=== PATIENT | male | born 2000 | race African-American/Black ===

== ENCOUNTER 2023-07-03 06:27 | Emergency (ER) | payer OTHER ==
[~2023-07-03] VITALS: Ht 170.2 cm; Wt 70.5 kg
[2023-07-03 06:34] VITALS: TEMP 98
[2023-07-03 06:43] VITALS: PULSE 95; RESP 16; O2SAT 99
[2023-07-03 06:45] VITALS: PULSE 95; RESP 16; O2SAT 99
[2023-07-03] MEDS ORDERED: ALBUTEROL SULFATE 2.5 MG/0.5 ML NEB SOLUTION NEB ONE (06:45)
[2023-07-03] MEDS ORDERED: PredniSONE 20 MG TABLET PO ONE (06:45)
[2023-07-03] MEDS ORDERED: IPRATROPIUM BROMIDE 0.5 MG/2.5 ML NEB SOLUTION NEB ONE (06:45)
[2023-07-03 07:02] LABS: COVID AG,FIA SOURCE NASAL SWAB
[2023-07-03 07:29] LABS: SARS-COV2 (COVID) ANTIGEN,FIA Negative (Negative)
[2023-07-03 07:30] LABS: INFLUENZA TYPE A NEGATIVE FOR TYPE A (NEGATIVE); INFLUENZA TYPE B NEGATIVE FOR TYPE B (NEGATIVE)
[2023-07-03] MEDS ORDERED: PRED-554 PO (07:36)
[2023-07-03 07:40] VITALS: BP 125/71
[2023-07-03] MEDS ORDERED: ALBUTEROL SULFATE HFA 90 MCG/PUFF 8 GM INHALER IH ONE (07:45)
[2023-07-03 08:19] VITALS: PULSE 95; RESP 16; O2SAT 98
== END 2023-07-03 08:05 | disposition home or self-care (01) ==
LOC: EMS 06:28
DX: J45.909 Unspecified asthma, uncomplicated (principal); Z20.822 Contact with and (suspected) exposure to COVID-19
CPT/HCPCS: 99283; 87426; 87804; 94640; J7512; J3535

== ENCOUNTER 2024-01-26 19:38 | Emergency (ER) | payer OTHER ==
[~2024-01-26] VITALS: Ht 175.3 cm; Wt 70.5 kg
[~2024-01-26 19:38] MED LIST: PRED-554 PO
[2024-01-26 20:03] VITALS: TEMP 98.5
[2024-01-26] MEDS ORDERED: POVIDONE-IODINE 10% 15 ML SOLUTION UD ONE (20:03)
[2024-01-26] MEDS: AMOX TR/POT CLAV 875 MG/125 MG TABLET PO ONE (22:35)
[2024-01-26] MEDS: BACITRACIN 0.9 GM PACKET OINTMENT TP ONE (22:47)
[2024-01-26] MEDS: LIDOCAINE 1% 10 ML VIAL ID ONE (23:05)
[2024-01-26] MEDS: RABIES IMMUNE GLOBULIN/PF 150 UNIT/ML 10 ML VIAL IM. ONE (23:06)
[2024-01-26] MEDS: RABIES VACCINE, HUMAN DIPLOID/PF 2.5 UNITS/ML VIAL IM. ONE (23:06)
[2024-01-26 23:10] VITALS: BP 117/80; PULSE 88; RESP 15
[2024-01-26] MEDS ORDERED: AMOX-457 PO (23:12)
== END 2024-01-27 00:01 | disposition home or self-care (01) ==
LOC: EMS 19:38
DX: S61.552A Open bite of left wrist, initial encounter (principal); W54.0XXA Bitten by dog, initial encounter; Y93.89 Activity, other specified; Y92.89 Other specified places as the place of occurrence of the external cause; Y99.8 Other external cause status
CPT/HCPCS: 12001; 90375; 90675; 99283; J3490

== ENCOUNTER 2024-01-28 14:49 | Emergency (ER) | payer OTHER ==
[~2024-01-28] VITALS: Ht 175.3 cm; Wt 70.5 kg
[~2024-01-28 14:49] MED LIST changes: +AMOX-457 PO
[2024-01-28 15:06] VITALS: TEMP 98.2
[2024-01-28 17:00] VITALS: BP 136/64; PULSE 84; RESP 17
== END 2024-01-28 17:55 | disposition home or self-care (01) ==
LOC: EMS 14:55
DX: S61.452A Open bite of left hand, initial encounter (principal); Z48.00 Encounter for change or removal of nonsurgical wound dressing; W54.0XXA Bitten by dog, initial encounter; Y93.89 Activity, other specified; Y92.89 Other specified places as the place of occurrence of the external cause; Y99.8 Other external cause status
CPT/HCPCS: 29240; 99282; Z7502